=== PATIENT | male | born 1975 | race Asian ===

== ENCOUNTER 2023-06-09 18:07 | Emergency (ER) | payer OTHER ==
[2023-06-09 18:55] VITALS: BP 139/88; PULSE 72; RESP 18; TEMP 97.7; BMI 22.4
[2023-06-09] MEDS ORDERED: ACETAMINOPHEN 500 MG TABLET (FP) ONE (19:24)
[2023-06-09] MEDS: ACETAMINOPHEN 500 MG TABLET (FP) PO ONE (19:27)
== END 2023-06-09 20:10 | disposition home or self-care (01) ==
LOC: EDBD → FER 18:07
DX: S80.11XA Contusion of right lower leg, initial encounter (principal); S70.02XA Contusion of left hip, initial encounter; V89.2XXA Person injured in unspecified motor-vehicle accident, traffic, initial encounter
CPT/HCPCS: 73502-TC-LT-FY; 73590-TC-RT-FY; 99284-25